=== PATIENT | female | born 1990 | race Caucasian/White ===

== ENCOUNTER 2017-12-04 05:54 | Day surgery (SDC) | payer OTHER ==
[2017-12-04] MEDS ORDERED: LACTATED RINGER'S 1,000 ML IV* (06:00)
[2017-12-04] MEDS ORDERED: GLYCOPYRROLATE 0.4 MG INJ (08:03)
[2017-12-04] MEDS ORDERED: NEOSTIGMINE 3 MG/3 ML SYRINGE (08:03)
[2017-12-04] MEDS ORDERED: CEFAZOLIN 1 GM INJ (08:03)
[2017-12-04] MEDS ORDERED: FENTAnyl 50 MCG/ML VIAL ×2 (08:03→09:18)
[2017-12-04] MEDS ORDERED: PROPOFOL 20 ML (08:03)
[2017-12-04] MEDS ORDERED: ROCURONIUM 50 MG INJ (08:03)
[2017-12-04] MEDS ORDERED: MIDAZOLAM 1 MG/ML 2 ML INJ (08:03)
[2017-12-04] MEDS ORDERED: ONDANSETRON 4 MG INJ (08:04)
[2017-12-04] MEDS ORDERED: DEXAMETHASONE 4 MG/ML 1 ML INJ (08:04)
[2017-12-04] MEDS: BUPIVACAINE 0.5%/EPI (SDV) 30 ML INJ (08:46)
[2017-12-04] MEDS ORDERED: SUGAMMADEX SODIUM 200 MG/2 ML VIAL IV (09:08)
[2017-12-04] MEDS ORDERED: KETOROLAC 30 MG INJ (09:12)
[2017-12-04] MEDS ORDERED: MEPERIDINE 25 MG INJ (09:36)
[2017-12-04] MEDS: MEPERIDINE 50 MG INJ IV (09:54)
[2017-12-04] MEDS ORDERED: MEPERIDINE 50 MG INJ IM (10:00)
== END 2017-12-04 11:25 | disposition home or self-care (01) ==
LOC: SDS 05:54
DX: Z30.2 Encounter for sterilization (principal); E66.9 Obesity, unspecified; Z64.1 Problems related to multiparity; Z87.891 Personal history of nicotine dependence
CPT/HCPCS: 58670; 86850; 86900; 86901

== ENCOUNTER 2018-12-16 06:10 | Day surgery (SDC) | payer OTHER ==
[~2018-12-16 06:10] MED LIST: CEFAZOLIN 2 GM/50 ML (PMX) 50 ML IVPB; SOD CHLORIDE 0.9% 1,000 ML IV
[2018-12-16] MEDS ORDERED: BUPIVACAINE 0.25% (MPF) 30 ML INJ (06:59)
[2018-12-16] MEDS ORDERED: POLYMYXIN/BACITRACIN 1L IRRIG (06:59)
[2018-12-16] MEDS ORDERED: MIDAZOLAM 1 MG/ML 2 ML INJ (07:04)
[2018-12-16] MEDS ORDERED: PROPOFOL 20 ML (07:04)
[2018-12-16] MEDS ORDERED: FENTAnyl 50 MCG/ML VIAL (07:04)
[2018-12-16] MEDS ORDERED: LIDOCAINE 2% (SDV) 5 ML INJ (07:04)
[2018-12-16] MEDS ORDERED: ROCURONIUM 50 MG INJ (07:05)
[2018-12-16] MEDS ORDERED: METOCLOPRAMIDE 10 MG INJ (07:05)
[2018-12-16] MEDS ORDERED: SUCCINYLCHOLINE CHLORIDE 100 MG/5 ML SYG IV (07:05)
[2018-12-16] MEDS ORDERED: ONDANSETRON 4 MG INJ (07:05)
[2018-12-16] MEDS ORDERED: ROPIVACAINE 0.5 % 30 ML VIAL (07:32)
[2018-12-16] MEDS ORDERED: HYDROmorphONE 1 MG/5 ML IV SYRINGE IV ×6 (09:23→10:00)
[2018-12-16] MEDS ORDERED: KETOROLAC 30 MG INJ IV ×2 (09:30→10:00)
[2018-12-16] MEDS ORDERED: hydrALAzine 20 MG INJ IV (09:30)
[2018-12-16] MEDS ORDERED: FENTAnyl 50 MCG/ML VIAL IV ×3 (09:30→10:00)
[2018-12-16] MEDS ORDERED: LABETALOL HCL 20MG INJ IV (09:30)
[2018-12-16] MEDS ORDERED: OXYCODONE/ACETAMINOPHEN (5/325) TAB PO ×2 (09:30)
[2018-12-16] MEDS ORDERED: ONDANSETRON 4 MG INJ IV ×2 (09:30→10:00)
[2018-12-16] MEDS: HYDROmorphONE 1 MG/5 ML IV SYRINGE IV ×2 (09:40→09:56)
[2018-12-16] MEDS ORDERED: MEPERIDINE 25 MG INJ IV (10:00)
[2018-12-16] MEDS ORDERED: LEVALBUTEROL (NEB) 1.25 MG/0.5 ML AMP HHN (10:00)
[2018-12-16] MEDS ORDERED: DIPHENHYDRAMINE 50 MG INJ IV (10:00)
[2018-12-16] MEDS: HYDROCODONE/APAP (5/325) TAB PO (10:10)
[2018-12-16] MEDS: FENTAnyl 50 MCG/ML VIAL IV (10:11)
== END 2018-12-16 11:08 | disposition home or self-care (01) ==
LOC: SDS 06:10
DX: K43.6 Other and unspecified ventral hernia with obstruction, without gangrene (principal)
CPT/HCPCS: 49653; 84703